=== PATIENT | male | born 1960 | race Caucasian/White ===

== ENCOUNTER 2017-05-19 06:17 | Day surgery (SDC) | payer OTHER ==
[2017-05-15 15:02] VITALS: BMI 27.7
[~2017-05-19] VITALS: Ht 167.6 cm; Wt 88.8 kg
[2017-05-19] VITALS (9 sets, daily range): BP systolic 130–159; BP diastolic 82–98; PULSE 60–79; RESP 10–20; Ht 167.6 cm; Wt 88.8 kg
[~2017-05-19 06:17] MED LIST: CIPROFLOXACIN 0.3% 2.5 ML OPH OPER SCH; CYCLOPENTOLATE/PHENYLEPH 2 ML OPH OPER SCH; DICLOFENAC 0.1% 2.5 ML OPH OPER SCH; NA HYALURONATE/CHONDROITIN 0.5 ML SYG RIGHT EYE ONE; TROPICAMIDE 1% 3ML OPH OPER SCH
[2017-05-19] MEDS ORDERED: CEFAZOLIN 1 GM INJ ONE (06:45)
[2017-05-19] MEDS ORDERED: EPINEPHrine 1 MG INJ ONE (06:45)
[2017-05-19] MEDS ORDERED: CARBACHOL 0.01% 1.5 ML OPH INJ ONE (06:45)
[2017-05-19] MEDS ORDERED: GENTAMICIN 80 MG INJ ONE (06:45)
[2017-05-19] MEDS ORDERED: LIDOCAINE 4% (MPF) 5 ML INJ ONE (06:45)
[2017-05-19] MEDS ORDERED: DEXAMETHASONE 4 MG/ML 1 ML INJ ONE (06:45)
[2017-05-19] MEDS ORDERED: MIDAZOLAM 1 MG/ML 2 ML INJ IV PRN (07:00)
[2017-05-19] MEDS ORDERED: hydrALAzine 20 MG INJ IV PRN (07:00)
[2017-05-19] MEDS ORDERED: DIPHENHYDRAMINE 50 MG INJ IV PRN (07:00)
[2017-05-19] MEDS ORDERED: FENTAnyl 50 MCG/ML VIAL IV PRN ×2 (07:00)
[2017-05-19] MEDS ORDERED: LABETALOL HCL 20MG INJ IV PRN (07:00)
[2017-05-19] MEDS ORDERED: ONDANSETRON 4 MG INJ IV PRN (07:00)
[2017-05-19] MEDS ORDERED: ATROPINE 1 MG/10 ML SYRINGE IV PRN (07:00)
[2017-05-19] MEDS ORDERED: MEPERIDINE 25 MG INJ IV PRN (07:00)
[2017-05-19] MEDS ORDERED: morphine (1 MG/ML) 10ML SYRINGE IV PRN ×3 (07:00)
[2017-05-19] MEDS ORDERED: PROPOFOL 200 MG INJ ONE (07:00)
[2017-05-19] MEDS ORDERED: HYDROmorphONE (0.2 MG/ML) 10ML SYG IV PRN ×3 (07:00)
[2017-05-19] MEDS ORDERED: EPHEDrine SULFATE 50 MG/5 ML SYG IV PRN (07:00)
[2017-05-19] MEDS ORDERED: OXYCODONE/ACETAMINOPHEN (5/325) TAB PO PRN ×2 (07:00)
[2017-05-19] MEDS ORDERED: METF1000 PO (07:07)
[2017-05-19] MEDS ORDERED: GLIP5TAB13 PO (07:07)
[2017-05-19] MEDS ORDERED: CEFAZOLIN 1 GM INJ INJ ONE (07:50)
[2017-05-19] MEDS ORDERED: [UNRECOGNIZED DRUG - OTHER] IO ONE (07:50)
[2017-05-19] MEDS ORDERED: DEXAMETHASONE 4 MG/ML 1 ML INJ INJ ONE (07:50)
--- NOTE | 2017-05-19 08:17 | HPN ---
Date/Time of Note Date/Time of Note DATE: 05/19/17 TIME: 08:16 Interval H&P Admission Note Pt. seen H&P reviewed: No system changes NATASHA HEDRICK MD May 19, 2017 08:17
[2017-05-19] MEDS ORDERED: PROPOFOL 20 ML ONE (08:53)
[2017-05-19] MEDS ORDERED: LIDOCAINE 100 MG SYRINGE ONE (08:54)
--- NOTE | 2017-05-19 09:21 | SIPON ---
Date/Time of Note Date/Time of Note DATE: 05/19/17 TIME: 09:20 Operative Report Preoperative Diagnosis cataract od Postoperative Diagnosis same Operation/Procedure Performed cataract surgery Surgeon: NATASHA HEDRICK MD Anesthesia Type: MAC Estimated Blood Loss: none Transfusion Required: no Specimen: none Grafts/Implants posterior chamber lens implant NATASHA HEDRICK MD May 19, 2017 09:21
--- NOTE | 2017-05-19 09:53 | OPR ---
DATE OF OPERATION: 05/19/2017 PREOPERATIVE DIAGNOSIS: Mature cataract, right eye. POSTOPERATIVE DIAGNOSIS: Mature cataract, right eye. SURGEON: Enrique Fernandez MD [employer]ER: ANESTHESIA: Local standby. ANESTHESIOLOGIST: Dr. Tolentino. OPERATION: Phacoemulsification with posterior chamber intraocular lens implant, right eye. PROCEDURE: The patient was brought to the operating room and placed on the table with an IV in place and the patient attached to an patient monitor. Oxygen was given via face mask. After some intravenous sedation was administered, local anesthesia was given using Xylocaine 2% with epinephrine, mixed with Marcaine 0.5%. This was given in a lid block and retrobulbar injection. The patient was then prepped and draped in the usual sterile manner. A wire lid speculum was inserted between the lids of the right eye. Four paracentesis incisions were made at the 2, 4, 8 and 10 o'clock positions adjacent to the corneoscleral limubus. Some Viscoat was injected into the anterior chamber and then 4 silicone iris hooks were inserted and used to grasp the pupil and enlarge a pupil, which had only dilated to 5 mm. After this was completed a 3.0 mm keratome was used to enter the anterior chamber in step corneal incision. Through this 3-mm opening, an irrigating cystotome was introduced into the anterior chamber. The chamber was filled with Viscoat and an anterior capsulotomy was performed. Balanced salt solution was then used for hydrodissection of the lens. A phacoemulsification handpiece was then brought into the field and introduced into the anterior chamber. The lens nucleus was emulsified using a deep groove and cracking the nucleus into quadrants. Following this, each quadrant was aspirated and emulsified at the pupillary margin. After this was completed, the irrigation/aspiration handpiece was brought to the field, introduced into the posterior chamber, and the lens cortical material was removed. When this was completed, additional Provisc was injected into the anterior and posterior chambers. The 3-mm opening had its internal lips enlarged, and then the posterior chamber intraocular lens measuring 21.0 diopters ([employer], model LI61AO) was then injected into the posterior chamber using the lens injector system. After the leading haptic was introduced into the capsular bag and the lens optic was present in the center of the eye, the injector was removed and the trailing haptic was grasped with non-toothed forceps and introduced into the capsular fold superiorly. A Sinskey hook was then used to rotate the intraocular lens so that the lips were oriented in the horizontal meridian. One 10-0 nylon suture was placed across the wound. Prior to tying, the irrigation/aspiration handpiece was reintroduced into the anterior chamber to remove the Viscoat. Miochol was instilled to constrict the pupil, and then the 10-0 nylon suture was tied. The ends were cut short and then the knot was buried. Then, 0.5 mL of dexamethasone and 0.5 mL of Ancef were injected into the sub-Tenon space in the inferior fornix. Ciloxan drops were then placed on the surface of the eye. The speculum was removed and a patch was applied. The patient then left the operating room in satisfactory condition. Dictated By: Enrique Fernandez MD /hannah/jeanna /Document#: [id number]
== END 2017-05-19 10:15 | disposition home or self-care (01) ==
LOC: SDS 06:17
PROVIDERS: ATTEND Ophthalmology
DX: H25.11 Age-related nuclear cataract, right eye (principal); E11.9 Type 2 diabetes mellitus without complications
CPT/HCPCS: 66984; 82962; J0171; J0690; J1100; J1580; J2001; V2632; Z7512; Z7610